=== PATIENT | male | born 1980 | race Caucasian/White ===

== ENCOUNTER 2022-09-04 22:16 | Emergency (ER) | payer SELFPAY ==
[~2022-09-04] VITALS: Ht 175.3 cm; Wt 73.0 kg
[2022-09-04 22:26] VITALS: BP 130/86
[2022-09-04 23:11] LABS: CLARITY URINE CLEAR (CLEAR); COLOR URINE YELLOW (YELLOW); KETONES URINE NEGATIVE (NEGATIVE); LEUKOCYTE ESTERASE URINE NEGATIVE (NEGATIVE); NITRITE URINE NEGATIVE (NEGATIVE); OCCULT BLOOD URINE NEGATIVE (NEGATIVE); PH URINE 7.5 (4.5-8.0); PROTEIN URINE NEGATIVE (NEGATIVE); SPECIFIC GRAVITY URINE 1.021 (1.005-1.030)
[2022-09-04 23:37] LABS: BASOPHILS % 0.2 % (0.0-2.0); EOSINOPHILS % 1.2 % (0.0-5.0); HEMATOCRIT. 47.7 % (42.0-52.0); HEMOGLOBIN. 16.9 g/dL (14.0-18.0); LYMPHOCYTES % 22.8 % (20.0-50.0); MEAN CORPUSCULAR HEMOGLOBIN 31.2 pg (28.0-32.0); MEAN CORPUSCULAR VOLUME 88.2 fL (80.0-94.0); MEAN PLATELET VOLUME 7.7 fl (7.4-10.4); MONOCYTES % 11.5 % (2.0-8.0); NEUTROPHILS % 64.3 % (40.0-76.0); PLATELET 192 x1000/uL (130-400); RED BLOOD CELL COUNT 5.41 mill/uL (4.7-6.1); RED CELL DISTRIBUTION WIDTH 13.6 % (11.6-14.6)
[2022-09-04 23:48] LABS: CHLORIDE 106 mEq/L (98-107)
[2022-09-05] MEDS ORDERED: MAGNESIUM/ALUMINUM HYDROXIDE/SIMETHICONE 30ML UDC PO STA (04:03)
[2022-09-05] MEDS ORDERED: VISCOUS LIDOCAINE 2% 15 ML UDC PO STA (04:03)
[2022-09-05] MEDS ORDERED: ONDANSETRON 4MG ODT PO STA (04:03)
[2022-09-05] MEDS ORDERED: OMEP20TA23 MT (04:33)
[2022-09-05] MEDS ORDERED: AMOX-494 MT (04:33)
[2022-09-05] MEDS ORDERED: CLAR-44 MT (04:33)
== END 2022-09-05 04:51 | disposition home or self-care (01) ==
LOC: ER 22:16
DX: R10.13 Epigastric pain (principal); R11.0 Nausea; Z90.49 Acquired absence of other specified parts of digestive tract
CPT/HCPCS: 36415; 80053; 81003; 83605; 83690; 85025; 99284; Q0162